=== PATIENT | female | born 1990 | race Caucasian/White ===

== ENCOUNTER 2020-03-17 03:56 | Emergency (ER) | payer OTHER, SELFPAY ==
[2020-03-17 04:07] VITALS: BP 137/92; PULSE 63; RESP 16; TEMP 36.8; O2SAT 100
--- NOTE | 2020-03-17 05:03 | ED.DENTAL ---
HPI - Dental/Oral General Chief complaint: Dental/Oral Stated complaint: dental pain Time Seen by Provider: 03/17/20 04:42 Source: patient Mode of arrival: ambulatory Limitations: no limitations History of Present Illness HPI Narrative: This patient is a 29 year old female who presents with c/o left upper dental pain. She states she has been having pain to her left upper molar for a while but over the past few days she has more severe pain. She was seen by her primary care physician yesterday, and She was prescribed amoxicillin. She has come to ER this morning because she feels swelling to left face and burning to left upper jaw. She has been taken naproxen and tylenol for her pain with out relief. MD Complaint: tooth pain Location: Tooth # Related Data Home Medications Medication Instructions Recorded Confirmed albuterol sulfate 2 puff INHALATION QID PRN 11/29/19 11/29/19 Allergies Allergy/AdvReac Type Severity Reaction Status Date / Time azithromycin AdvReac Unknown Nausea Verified 11/29/19 19:35 Review of Systems Review of Systems: All systems reviewed & are unremarkable except as noted in HPI and below Constitutional: Constitutional: Denies chills and Denies fever(s) ENT: Comments: left facial swelling PMFSH Past Medical History Medical History (Updated 03/17/20 @ 07:57 by Gillian Newby MD) Asthma Surgical History Surgical History (Updated 03/17/20 @ 07:56 by Gillian Newby MD) H/O tubal ligation Social History Social History (Updated 03/17/20 @ 07:57 by Gillian Newby MD) Smoking packs per day: 0.5 Smoking cigarettes per day: 10.0 Gender identity (if verbalized by the patient): Female Exam Const: General: alert Orientation/consciousness: patient oriented x3 HENMT: Head: normocephalic and atraumatic Face and sinus: face symmetric (no facial swelling, no facial erythema) Mouth: Yes lip normal, Yes tongue normal and Yes moist mucous membranes Teeth and gingiva: abnormal tooth and associated gingiva (broken tender tooth #17, no gum swelling) Throat: posterior oropharynx normal and uvula midline Chest: Chest palpation & inspection: normal inspection of the chest Resp: Effort & Inspection: normal respiratory effort Course Reevaluation(s) Reevaluation #1: Patient states her pain has improved with dose of toradol and norco. She will continue to take her antibiotics and follow up with a dentist. Date: 03/17/20 Time: 06:48 Vital Signs Vital signs: Vital Signs Temperature 98.2 F 03/17/20 04:07 Pulse Rate 63 03/17/20 04:07 Respiratory Rate 16 03/17/20 04:07 Blood Pressure 137/92 H 03/17/20 04:07 Pulse Oximetry 100 03/17/20 04:07 Temperature 97.9 F 03/17/20 07:08 Pulse Rate 72 03/17/20 07:08 Respiratory Rate 16 03/17/20 07:08 Blood Pressure 132/87 03/17/20 07:08 Pulse Oximetry 98 03/17/20 07:08 Discharge Plan Discharge Clinical Impression: Dental caries, Dental abscess Patient Disposition: Home, Self-Care Condition: Stable Instructions: Antibiotic Form, Dental Abscess (ED) Additional Instructions: Continue taking your amoxicillin. Follow up with a dentist. Try calling Dr. Myron Goodson with [facility] [phone] Prescriptions: New tramadol 50 mg tablet 50 mg PO Q6H PRN (Reason: pain) Qty: 10 RF: 0 No Action albuterol sulfate 90 mcg/actuation Hfa Aerosol Inhaler 2 puff INHALATION QID PRN (Reason: Shortness Of Breath) RF: 0 fluconazole [Diflucan] 150 mg tablet 150 mg PO ONCE Qty: 1 RF: 0 Follow-up/Referrals: Harriet,Kalyani Goff MD [Primary Care Provider] - Stand Alone Forms: Work/School Release IP Discharge Date/Time: 03/17/20 07:11
[2020-03-17] MEDS: ONDANSETRON HCL ODT 4 MG TABLET PO (05:19)
[2020-03-17] MEDS: KETOROLAC (*BKC) 60 MG/2 ML VIAL IM (05:21)
[2020-03-17 05:49] VITALS: TEMP 36.6
[2020-03-17 05:51] VITALS: TEMP 36.6
[2020-03-17 07:08] VITALS: BP 132/87; PULSE 72; RESP 16; TEMP 36.6; O2SAT 98
== END 2020-03-17 07:11 | disposition home or self-care (01) ==
PROVIDERS: Emergency Provider General Practice; PCP Family Medicine
DX: K02.9 Dental caries, unspecified (principal); K04.7 Periapical abscess without sinus; J45.909 Unspecified asthma, uncomplicated; F17.210 Nicotine dependence, cigarettes, uncomplicated
CPT/HCPCS: 96372; 99283; A9270; J1885

== ENCOUNTER 2021-05-14 19:16 | Emergency (ER) | payer OTHER, SELFPAY ==
[2021-05-14 19:28] VITALS: BP 116/73; PULSE 75; RESP 18; TEMP 36.3; O2SAT 98
--- NOTE | 2021-05-14 19:44 | ED.SKABFB ---
HPI - Skin/Abscess/Foreign Bdy General Chief complaint: Skin/Abscess/Foreign Body Stated complaint: Hives Time Seen by Provider: 05/14/21 19:39 Source: patient and RN notes reviewed Mode of arrival: ambulatory Limitations: no limitations History of Present Illness HPI narrative: Patient presents today complaining of hives. She applied a new self tanning lotion yesterday and noted hives to most of her body surface today. She has applied Benadryl and hydrocortisone without relief. She is itching profusely. MD complaint: rash Related Data Allergies Allergy/AdvReac Type Severity Reaction Status Date / Time azithromycin AdvReac Unknown Nausea Verified 05/14/21 19:29 Review of Systems Review of Systems: Narrative: CONSTITUTIONAL: Denies body aches, fever, chills, or sweats. EYES: Denies visual changes, redness, or discharge. ENT: Denies rhinorrhea, congestion, sore throat, or otalgia. CARDIOVASCULAR: Denies chest pain, palpitations, or edema. RESPIRATORY: Denies cough or dyspnea. GASTROINTESTINAL: Denies abdominal pain, nausea, vomiting, or diarrhea. GENITOURINARY: Denies dysuria or hematuria. SKIN: + Rash MUSCULOSKELETAL: Denies back pain, joint pain, or myalgia. NEUROLOGIC: Denies headache, numbness, tingling, or weakness. PSYCH: Denies depression or anxiety. PMFSH Past Medical History Medical History Asthma Surgical History Surgical History H/O tubal ligation Social History Social History Smoking packs per day: 0.5 Smoking cigarettes per day: 10.0 Gender identity (if verbalized by the patient): Female Comments At time of signature, I have reviewed and agree with nursing past medical, surgical, social and family history unless otherwise noted. Please see nursing chart for further information. There is no relevant family history pertinent to the presenting complaint Exam Narrative: Exam Narrative: GENERAL: Well-appearing, well-nourished, and in no acute distress. HEAD: Normocephalic, atraumatic. EYES: EOMI. No redness or drainage. Conjunctivae normal. ENT: Mucous membranes pink and moist. Throat normal. Uvula midline. NECK: Normal AROM.. CHEST: No respiratory distress. EXTREMITIES: Normal range of motion. No edema. SKIN: Warm, dry. Capillary refill normal. Normal skin turgor. Small urticarial lesions scattered over the trunk, all extremities, and face. NEURO: No focal deficits. Alert and oriented x3. Gait steady. PSYCH: Normal affect. No signs of depression or anxiety. Course Vital Signs Vital signs: Vital Signs Temperature 97.3 F L 05/14/21 19:28 Pulse Rate 75 05/14/21 19:28 Respiratory Rate 18 05/14/21 19:28 Blood Pressure 116/73 05/14/21 19:28 Pulse Oximetry 98 05/14/21 19:28 Temperature 97.3 F L 05/14/21 19:28 Pulse Rate 75 05/14/21 19:28 Respiratory Rate 18 05/14/21 19:28 Blood Pressure 116/73 05/14/21 19:28 Pulse Oximetry 98 05/14/21 19:28 Reviewed MDM - Skin/Abscess/Foreign Bdy Differential Diagnosis Differential diagnosis: Likely viral exanthem, urticaria, cellulitis, eczema, insect bites and contact dermatitis Critical Care Time Critical Care Time Critical Care Time: No Discharge Plan Discharge Clinical Impression: Urticaria Patient Disposition: Home, Self-Care Condition: Stable Instructions: Urticaria (ED) Additional Instructions: Please take the prednisone as directed for your hives. Continue to take Benadryl for your itching. Follow-up with your PCP next week if symptoms are not improving. Go to the ER immediately with any shortness of breath or difficulty swallowing. Patient Language: Albanian Prescriptions: New prednisone 50 mg tablet 50 mg PO DAILY 5 Days Qty: 5 RF: 0 Follow-up/Referrals: Harriet,Kalyani Goff MD [Primary Care
== END 2021-05-14 19:47 | disposition home or self-care (01) ==
PROVIDERS: Emergency Provider Nurse Practitioner; PCP Family Medicine
DX: L50.9 Urticaria, unspecified (principal); F17.210 Nicotine dependence, cigarettes, uncomplicated; J45.909 Unspecified asthma, uncomplicated
CPT/HCPCS: 99213; G0463

== ENCOUNTER 2021-07-11 10:30 | Emergency (ER) | payer OTHER, SELFPAY ==
--- NOTE | ~2021-07-11 | XR_ITS ---
EXAMINATION: XR chest 1V portable DATE: 07/11/2021 11:16 INDICATION: Shortness of breath and productive cough TECHNIQUE: frontal view of the chest was obtained. COMPARISON: Chest radiograph dated 06/16/2017 FINDINGS: The lungs remain clear with no focal airspace opacities, pulmonary edema, pleural effusion or pneumot horax. The cardiomediastinal silhouette is normal. Mild mid thoracic levocurvature. IMPRESSION: 1. No acute cardiopulmonary disease. Reviewed, dictated and finalized at location [facility].
[2021-07-11 10:36] VITALS: BP 119/85; PULSE 94; RESP 16; TEMP 36.6; O2SAT 98
--- NOTE | 2021-07-11 11:19 | ED.SOB ---
HPI - SOB/Dyspnea General Chief Complaint: Shortness of Breath/Dyspnea Stated Complaint: diff breathing Time Seen by Provider: 07/11/21 11:06 Source: patient Mode of arrival: ambulatory Limitations: no limitations History of Present Illness HPI Narrative: This is a 31-year-old female that presents to the emergency department for ongoing wheezing over the last couple of days. Reports she thinks she had an allergic reaction to tanning bed brush cleaner. Reports she had taken a couple of days in a row. Reports after she took and she felt really itchy and started to have tightness in her chest. This has been ongoing over the last couple of days since she tanned on Sunday. Reports wheezing and shortness of breath. Reports history of asthma. She has been doing nebulizer treatments with little relief. Denies fever. Related Data Home Medications Medication Instructions Recorded Confirmed albuterol sulfate 07/11/21 albuterol sulfate INHALATION 07/11/21 Allergies Allergy/AdvReac Type Severity Reaction Status Date / Time azithromycin AdvReac Unknown Nausea Verified 07/11/21 10:58 Review of Systems Review of Systems: CONSTITUTIONAL: Denies fever, chills CARDIOVASCULAR: Denies chest pain RESPIRATORY: Reports cough and dyspnea. All systems reviewed & are unremarkable except as noted in HPI and below PMFSH Past Medical History Medical History Asthma Surgical History Surgical History H/O tubal ligation Social History Social History Smoking packs per day: 0.5 Smoking cigarettes per day: 10.0 Gender identity (if verbalized by the patient): Female Exam Narrative: GENERAL: Well-appearing, well-nourished, and in no acute distress. HEAD: Normocephalic, atraumatic. EYES: EOMI. ENT: Nares clear, no rhinorrhea or epistaxis. Mucous membranes moist. Oropharynx without tonsillar hypertrophy exudate or other lesions. Bilateral TMs pearly álvarez non-bulging NECK: Supple. No adenopathy or masses. CHEST: No respiratory distress. Diffuse expiratory wheezes. No rales or rhonchi HEART: Regular rate and rhythm. No murmur heard. Normal peripheral pulses. EXTREMITIES: Normal range of motion. No edema. SKIN: Warm, dry, no rash. NEURO: No focal deficits. Alert and oriented x3. PSYCH: Normal mood and affect Course Reevaluation(s) Reevaluation #1: Lung sounds much improved following nebulizer treatments Date: 07/11/21 Time: 12:46 Vital Signs Vital signs: Vital Signs Temperature 97.8 F 07/11/21 10:36 Pulse Rate 94 07/11/21 10:36 Respiratory Rate 16 07/11/21 10:36 Blood Pressure 119/85 07/11/21 10:36 Pulse Oximetry 98 07/11/21 10:36 Temperature 97.8 F 07/11/21 10:36 Pulse Rate 74 07/11/21 12:42 Respiratory Rate 12 07/11/21 12:42 Blood Pressure 119/85 07/11/21 10:36 Pulse Oximetry 98 07/11/21 10:36 MDM - SOB/Dyspnea MDM Narrative Medical decision making narrative: Patient presents to the emergency department for wheezing noted over the last couple of days. Does has history of asthma. She is afebrile and nontoxic-appearing. Oxygen saturation is normal on room air. Chest x-ray without acute cardiopulmonary abnormality. Diffuse wheezing noted initially on exam. Relief after nebulizer treatments. Patient also given a dose of Solu-Medrol in the ED. Will be given a couple more days of steroids and instructed on continued use of her nebulizer as needed. She is to follow-up with her primary care doctor. She was given warnings to return the ER Imaging Data Radiologist's impression: ITS Impressions Chest X-Ray 07/11/21 11:43 IMPRESSION: 1. No acute cardiopulmonary disease. Critical Care Time Critical Care Time Critical Care Time: No Discharge Plan Discharge Clinical Impression: Asthma wit
[2021-07-11] MEDS: ALBUTEROL SULFATE NEB 2.5 MG/0.5 ML INH 5 MG INHALATION ×2 (11:24→12:41)
[2021-07-11] MEDS: IPRATROPIUM BR 0.02% INH SOLN 0.5 MG/2.5 ML VIAL INHALATION ×2 (11:24→12:41)
[2021-07-11 11:26] VITALS: PULSE 70; RESP 18
[2021-07-11] MEDS: methylPREDNISolone SOD SUCC 125 MG VIAL IV PUSH (11:27)
[2021-07-11 11:30] VITALS: PULSE 66; RESP 12
[2021-07-11 12:42] VITALS: PULSE 74; RESP 12
[2021-07-11 12:55] VITALS: BP 105/68; PULSE 81; RESP 10; O2SAT 100
== END 2021-07-11 12:56 | disposition home or self-care (01) ==
PROVIDERS: Emergency Provider Emergency Medicine; PCP Family Medicine
DX: J45.901 Unspecified asthma with (acute) exacerbation (principal); F17.210 Nicotine dependence, cigarettes, uncomplicated
CPT/HCPCS: 71045; 94640; 96374; 99284; J2930

== ENCOUNTER 2021-11-10 12:53 | Emergency (ER) | payer OTHER, SELFPAY ==
[2021-11-10 13:05] VITALS: BP 117/63; PULSE 78; RESP 16; TEMP 37.6; O2SAT 99
--- NOTE | 2021-11-10 14:12 | ED.ABDPAIN ---
HPI - Abdominal Pain General Chief Complaint: Abdominal Pain Stated Complaint: abd pain Time Seen by Provider: 11/10/21 14:13 Source: patient, RN notes reviewed and old records reviewed Mode of arrival: ambulatory Limitations: no limitations History of Present Illness HPI narrative: 31-year-old female who presents to [facility] with complaints of left lower abdominal pain for the past 2 weeks. Patient states that she has increased symptoms with eating and if she has intercourse, denies any history of PID or any problems with her ovaries has had tubal ligation. Patient states that she had normal bowel movement today initially she had some constipation and some diarrhea.Patient denies any fevers chills or sweats or any body aches has not had COVID or flu vaccinations. Patient denies any burning or pain with urination. MD elicited complaint: abdominal pain Related Data Home Medications Medication Instructions Recorded Confirmed albuterol sulfate 07/11/21 albuterol sulfate INHALATION 07/11/21 budesonide-formoterol [Symbicort] INHALATION 11/10/21 Allergies Allergy/AdvReac Type Severity Reaction Status Date / Time azithromycin AdvReac Unknown Nausea Verified 07/11/21 10:58 Review of Systems Review of Systems: CONSTITUTIONAL: Denies fever, chills, or sweats. EYES: Denies visual changes, redness, or discharge. ENT: Denies rhinorrhea, congestion, sore throat, or otalgia. CARDIOVASCULAR: Denies chest pain, palpitations, or edema. RESPIRATORY: Denies cough or dyspnea. GASTROINTESTINAL: Reported abdominal pain, states some episodes of nausea,no recent vomiting, or diarrhea, normal BM today GENITOURINARY: Denies dysuria or hematuria. SKIN: Denies rash or itching. MUSCULOSKELETAL: Denies back pain, joint pain, or myalgia. NEUROLOGIC: Denies headache, numbness, or weakness. PSYCHIATRIC: Denies anxiety or depression, is anxious. All systems reviewed & are unremarkable except as noted in HPI and below PMFSH Past Medical History Medical History Asthma Surgical History Surgical History H/O tubal ligation Social History Social History Smoking packs per day: 0.5 Smoking cigarettes per day: 10.0 Gender identity (if verbalized by the patient): Female Comments At time of signature, agree with nursing past medical, surgical, social and family history. There is no relevant family history pertinent to the presenting complaint Exam Narrative: GENERAL: Well-appearing, well-nourished, and in no acute distress. HEAD: Normocephalic, atraumatic. EYES: PERRLA and EOMI. ENT: Nares clear, no rhinorrhea or epistaxis. Mucous membranes moist.Tm's normal with good light reflex, throat pink with no lesions exudates or tonsil swelling NECK: Supple. no lymphadenopathy CHEST: Clear to auscultation. No respiratory distress.SAO2 99% on room air HEART: Regular rate and rhythm. No murmur heard. Normal peripheral pulses. ABDOMEN: Soft, no tenderness elicited on palpation, nondistended, normal active bowel sounds.No McBurney point tenderness no CVA tenderness. EXTREMITIES: Normal range of motion. No edema. SKIN: Warm, dry, no rash. NEURO: No focal deficits. Alert and oriented x3. Course Course Level of Care: Express Care Visit Vital Signs Vital signs: Vital Signs Temperature 37.6 C 11/10/21 13:05 Pulse Rate 78 11/10/21 13:05 Respiratory Rate 16 11/10/21 13:05 Blood Pressure 117/63 11/10/21 13:05 Pulse Oximetry 99 11/10/21 13:05 Temperature 37.6 C 11/10/21 13:05 Pulse Rate 78 11/10/21 13:05 Respiratory Rate 16 11/10/21 13:05 Blood Pressure 117/63 11/10/21 13:05 Pulse Oximetry 99 11/10/21 13:05 MDM - Abdominal Pain Differential Diagnosis Differential diagnosis: Likely abdominal pain, diverticulitis, gastroenteritis and other (left lower
--- NOTE | 2021-11-10 14:25 | PC.NURSE ---
in br to obtain ua spec.
== END 2021-11-10 15:15 | disposition home or self-care (01) ==
PROVIDERS: Emergency Provider Registered Nurse
DX: R10.32 Left lower quadrant pain (principal); F17.210 Nicotine dependence, cigarettes, uncomplicated; J45.909 Unspecified asthma, uncomplicated
CPT/HCPCS: 81003; 99212; G0463

== ENCOUNTER 2022-09-18 13:41 | Emergency (ER) | payer OTHER, SELFPAY ==
--- NOTE | ~2022-09-18 | CT_ITS ---
EXAMINATION: CT abdomen pelvis w con DATE: 09/18/2022 15:41 INDICATION: Rectal pain, fever, diarrhea. Recent diagnosis of hemorrhoid. TECHNIQUE: Computed tomography (CT) of the abdomen and pelvis was performed with 100 CC Omnipaque 350 intravenous contrast. Automated exposure control and iterative reconstruction technique were employe d. Exam dose: 265.95 mGy-cm total exam DLP. COMPARISON: None. FINDINGS: The lung bases are clear. Normal heart size. No pericardial or pleural effusion. The liver, gallbladder, bile ducts, spleen, pancreas, pancreatic duct, and adrenal glands and kidneys appear normal. Normal caliber of the abdominal aorta. No intraperitoneal or retroperitoneal or pelvic mass lesion or adenopathy or ascites. Normal appendix. No bowel obstruction, bowel wall thickening, pneumatosis or intraperitoneal free air is detected. Retroverted uterus. The urinary bladder appears unremarkable. There is chronic deformity of the lateral aspect of the left iliac bone. No suspicious osteolytic or osteoblastic lesions are noted. IMPRESSION: No significant abnormality Reviewed, dictated and finalized at [facility]. Reviewed, dictated and finalized at location [facility]. EOPTICIAN IMPRESSION: No significant abnormality
[2022-09-18 13:56] VITALS: BP 135/71; PULSE 92; RESP 18; TEMP 37.5; O2SAT 100
--- NOTE | 2022-09-18 15:10 | ED.GENADULT ---
HPI - General Adult General Chief complaint: Unspecified Stated complaint: rectal pain Time Seen by Provider: 09/18/22 14:41 History of Present Illness HPI narrative: 32-year-old female here for evaluation of left lower quadrant abdominal pain, rectal pain, and diarrhea for the past 2 weeks. Patient was seen by her primary care doctor upon symptom onset and was diagnosed with diverticulitis. She was not given antibiotics and her symptoms improved with symptoms controlled with dicyclomine. patient states that she ran out of dicyclomine several days ago and her pain returned. She saw her primary care doctor who diagnosed her with a hemorrhoid and anal fissure, was given cream with improvement of her symptoms, but states again she ran out of the cream. Patient presents today due to longevity of symptoms. Related Data Home Medications Medication Instructions Recorded Confirmed albuterol sulfate 2.5 mg/3 mL 07/11/21 (0.083 %) solution for nebulization albuterol sulfate 90 mcg/actuation inhalation 07/11/21 aerosol inhaler budesonide-formoterol HFA 80 inhalation 11/10/21 mcg-4.5 mcg/actuation aerosol inhaler (Symbicort) Allergies Allergy/AdvReac Type Severity Reaction Status Date / Time azithromycin AdvReac Unknown Nausea Verified 09/18/22 14:51 Review of Systems Review of Systems: Gen: Denies fevers or chills Eyes: Denies eye pain or visual change ENT: Denies congestion Respiratory: Denies shortness of breath or cough CV: Denies chest pain or palpitations GI: Reports rectal pain, abdominal pain, diarrhea. denies burning, urgency, frequency or hematuria Musculoskeletal: Denies back pain or muscle pain Neuro: Denies numbness, tingling, weakness or focal weakness Skin: Denies rash Except as documented, all other systems reviewed and negative [facility] Past Medical History Medical History Asthma Surgical History Surgical History H/O tubal ligation Social History Social History Smoking packs per day: 0.5 Smoking cigarettes per day: 10.0 Gender identity (if verbalized by the patient): Female Exam Narrative: APPEARANCE: Well appearing, no pain in distress, well-nourished. Head: Normocephalic and atraumatic. EYES: PERRLA/EOMI, conjunctivae clear NOSE: No nasal drainage EARS: External ear normal in appearance THROAT: Oropharynx is clear. Mucous membranes are moist. NECK: Supple. No adenopathy, no masses. RESPIRATORY: Airway patent, respirations nonlabored. Clear to auscultation bilaterally, no rales, rhonchi, wheezing. CARDIOVASCULAR: Regular rate and rhythm without murmurs, rubs, or gallops. ABDOMINAL: Normoactive bowel sounds. Soft, nontender, nondistended. No rebound tenderness or guarding. : External hemorrhoid noted. Pain with internal rectal exam. MUSCULOSKELETAL: Extremities are warm and well-perfused. Moves all extremities well. No edema. NEURO: Normal speech. No focal neurologic deficits. SKIN: Skin is warm and dry. No rashes. PSYCHIATRIC: Normal affect/mood.. Course Vital Signs Vital signs: Vital Signs Temperature 99.5 F 09/18/22 13:56 Pulse Rate 92 09/18/22 13:56 Respiratory Rate 18 09/18/22 13:56 Blood Pressure 135/71 09/18/22 13:56 Pulse Oximetry 100 09/18/22 13:56 Oxygen Delivery Room Air 09/18/22 13:56 Temperature 99.5 F 09/18/22 13:56 Pulse Rate 92 09/18/22 13:56 Respiratory Rate 18 09/18/22 13:56 Blood Pressure 135/71 09/18/22 13:56 Pulse Oximetry 100 09/18/22 13:56 Oxygen Delivery Room Air 09/18/22 13:56 Medical Decision Making [facility] Narrative Medical decision making narrative: 32-year-old female here for evaluation of rectal pain over the past several days, preceded by several days of abdominal pain and diarrhea. Patient is nontoxic-appear
[2022-09-18 15:35] LABS: Estimated CRCL calculation 61 ml/min; Estimated Glomerular Filt Rate > 60
[2022-09-18 15:41] LABS: Basophils Absolute Auto 0.1 K/mm3 (0.0-0.1); Basophils Percent Auto 0.7 % (0.2-1.2); Eosinophils Absolute Auto 0.2 K/mm3 (0-0.3); Hematocrit 38.1 % (37.0-47.0); Hemoglobin 12.7 g/dL (12.0-15.0); Immature Granulocyte Absolute 0.02 K/mm3 (0.00-0.031); Immature Granulocyte Percent A 0.2 % (0-0.5); Lymphocytes Absolute Auto 2.99 K/mm3 (0.9-3.2); Mean Corpuscular HGB Conc 33.3 g/dl (32-36); Mean Corpuscular Hemoglobin 29.7 pg (26-34); Mean Corpuscular Volume 89.2 fl (80-100); Mean Platelet Volume 9.5 fl (7.4-10.4); Monocytes Absolute Auto 0.7 K/mm3 (0.1-0.6); Monocytes Percent Auto 6.7 % (2.6-8.5); Neutrophils Absolute Auto 5.7 K/mm3 (1.3-6.7); Neutrophils Percent Auto 59.4 % (45.5-73.1); Platelet Count Result 363 k/mm3 (150-375); Red Blood Count 4.27 M/mm3 (4.2-5.4); Red Cell Distribution Width 13.2 % (11.5-14.5); White Blood Count 9.6 K/mm3 (4.5-10.0)
[2022-09-18 15:57] LABS: Alanine Aminotransferase 13 U/L (6-35); Albumin Level 4.4 g/dL (3.5-5.1); Alkaline Phosphatase 42 U/L (38-126); Anion Gap 9 mmol/L (8-16); Aspartate Amino Transferase 15 U/L (14-36); Bilirubin,Total 0.5 mg/dL (0.2-1.3); Blood Urea Nitrogen 11 mg/dL (7-17); Calcium 8.4 mg/dL (8.4-10.2); Carbon Dioxide 26 mmol/L (22-30); Chloride 105 mmol/L (98-107); Estimated CRCL calculation 68 ml/min; Estimated Glomerular Filt Rate > 60; Glucose 96 mg/dL (65-110); Potassium 3.7 mmol/L (3.4-5.0); Sodium 140 mmol/L (137-145)
== END 2022-09-18 16:38 | disposition home or self-care (01) ==
PROVIDERS: Physician Assistant; Emergency Provider Emergency Medicine; PCP Family Medicine
DX: K64.4 Residual hemorrhoidal skin tags (principal); J45.909 Unspecified asthma, uncomplicated
CPT/HCPCS: 74177; 80053; 81025; 85025; 99284; Q9967

== ENCOUNTER 2024-07-24 12:36 | Emergency (ER) | payer OTHER, SELFPAY ==
--- NOTE | ~2024-07-24 | XR_ITS ---
Left foot Technique: AP, oblique, and lateral views were obtained. Clinical History: Pain Findings: There is acute, oblique, minimally/fracture the fifth metatarsal shaft. No other fracture o r dislocation seen.. Joint spaces are preserved without erosive or degenerative change. Soft tissues are unremarkable. Impression: Acute, oblique fracture of the fifth metatarsal shaft, as detailed above. Reviewed, dictated and finalized at location M. Impression: Acute, oblique fracture of the fifth metatarsal shaft, as detailed above.
[2024-07-24 12:48] VITALS: BP 135/78; PULSE 85; RESP 20; TEMP 37.7; O2SAT 98
--- NOTE | 2024-07-24 12:49 | ED.FALL ---
HPI - Fall General Chief Complaint: Extremity Injury, Lower Stated Complaint: FALL Time Seen by Provider: 07/24/24 13:02 Source: patient, RN notes reviewed and old records reviewed Mode of arrival: ambulatory Limitations: no limitations History of Present Illness HPI Narrative: 34-year-old female presents to the [facility] with complaints of left foot pain, swelling, bruising Patient states on Sunday 2 days was walking, rolled her foot. Significant bruising swelling to the dorsal aspect Onset (ago): day(s) (2) Related Data Home Medications Medication Instructions Recorded Confirmed albuterol sulfate 2.5 mg/3 mL 07/11/21 (0.083 %) solution for nebulization albuterol sulfate 90 mcg/actuation inhalation 07/11/21 aerosol inhaler budesonide-formoterol HFA 80 inhalation 11/10/21 mcg-4.5 mcg/actuation aerosol inhaler (Symbicort) Allergies Allergy/AdvReac Type Severity Reaction Status Date / Time azithromycin AdvReac Unknown Nausea Verified 07/24/24 12:56 Review of Systems Review of Systems: All systems reviewed & are unremarkable except as noted in HPI and below Constitutional: Constitutional: Reports no additional constitutional complaints Eyes: Eyes: Reports no additional eye complaints ENT: Reports system reviewed and no additional complaints, except as documented Cardiovascular: Cardiovascular: Reports no additional cardiovascular complaints, Denies chest pain and Denies dyspnea Respiratory: Respiratory: Reports no additional respiratory complaints, Denies chest congestion, Denies cough and Denies dyspnea Gastrointestinal: Gastrointestinal: Reports no additional gastrointestinal complaints, Denies abdominal pain, Denies nausea and Denies vomiting Musculoskeletal: Musculoskeletal: Reports as per HPI Integumentary/Breasts: Skin/Breast: Reports system reviewed and no additional complaints, except as docu Neurologic: Reports system reviewed and no additional complaints, except as documented Psychiatric: Psychiatric: Reports no additional psychiatric complaints Allergic/Immunologic: Allergic/Immunologic: Reports no additional allergic/immunologic complaints PMFSH Past Medical History Medical History Asthma Surgical History Surgical History H/O tubal ligation Social History Social History Smoking packs per day: 0.5 Smoking cigarettes per day: 10.0 Gender identity (if verbalized by the patient): Female Comments At the time of my signature, I reviewed and agree with the nursing past medical, surgical, social, and family history. There is no relevant family history pertinent to the patient complaint. Exam Const: General: cooperative, healthy appearing, no acute distress, well developed, alert, uncomfortable and well nourished Nutritional Appearance: well nourished Orientation/consciousness: patient oriented x3 Limitations: no limitations HENMT: Head: normal to inspection Ears: hearing grossly normal bilaterally and external ears normal Face/Nose/Sinus: Normal external nose present, Normal nares present, Normal nasal mucous membranes and turbinates present, normal facial exam and face symmetric Face and sinus: normal facial exam and face symmetric Eyes: General: appearance normal, both eyes and all related structures Alignment and Position: alignment normal Periorbital: periorbital findings normal Neck: Neck: normal visual inspection, full ROM, no lymphadenopathy and no meningeal signs Chest: Chest palpation & inspection: normal inspection of the chest Resp: Effort & Inspection: normal respiratory effort and able to speak in complete sentences Cardio: Rate: regular rate Skin: General skin exam: normal color and no rashes or lesions noted Lesions: no lesions Rashes: no rashes Trauma: no lacerations or abrasions
== END 2024-07-24 14:20 | disposition home or self-care (01) ==
PROVIDERS: Emergency Provider Nurse Practitioner
DX: S92.355A Nondisplaced fracture of fifth metatarsal bone, left foot, initial encounter for closed fracture (principal); X50.9XXA Other and unspecified overexertion or strenuous movements or postures, initial encounter; Y93.01 Activity, walking, marching and hiking
CPT/HCPCS: 29515; 73630; 99214; G0463

== ENCOUNTER 2024-08-17 09:40 | Emergency (ER) | payer OTHER, SELFPAY ==
[2024-08-17 09:53] VITALS: BP 118/50; PULSE 91; RESP 20; TEMP 37.2; O2SAT 96
--- NOTE | 2024-08-17 10:04 | ED.ASTHMA ---
HPI - Asthma General Chief Complaint: Asthma Stated Complaint: Asthma Time Seen by Provider: 08/17/24 10:11 Source: patient and RN notes reviewed Mode of arrival: ambulatory Limitations: no limitations History of Present Illness HPI Narrative: 34-year-old female with history of asthma presents with concern for shortness of breath. She reports she went to a tanning bed and feels that she was triggered by the cleaning solution of the tanning bed. Reports she had trouble sleeping overnight, she has been using a nebulizer every 1 and half to 2 hours. She last used 1 at 9:30 a.m. this morning. Reports 1 week history of nasal congestion, drainage, cough. MD complaint: asthma attack Related Data Home Medications Medication Instructions Recorded Confirmed albuterol sulfate 2.5 mg/3 mL 2.6 mg inhalation Q4-5H 07/11/21 08/17/24 (0.083 %) solution for nebulization albuterol sulfate 90 mcg/actuation 2 puff inhalation Q4-5H 07/11/21 08/17/24 aerosol inhaler budesonide-formoterol HFA 80 1 puff inhalation DAILY 11/10/21 08/17/24 mcg-4.5 mcg/actuation aerosol inhaler (Symbicort) Allergies Allergy/AdvReac Type Severity Reaction Status Date / Time azithromycin AdvReac Unknown Nausea Verified 08/17/24 09:54 Review of Systems Review of Systems: CONSTITUTIONAL: Denies malaise, chills, sweats, or fever. EYES: Denies visual changes, redness, or discharge. ENT: Reports rhinorrhea, congestion CARDIOVASCULAR: Denies chest pain, palpitations, or edema. RESPIRATORY: Reports cough, wheezing, dyspnea. GASTROINTESTINAL: Denies abdominal pain, nausea, vomiting, diarrhea SKIN: Denies rash or itching. MUSCULOSKELETAL: Denies myalgia. NEUROLOGIC: Denies headache. All systems reviewed & are unremarkable except as noted in HPI and below PMFSH Past Medical History Medical History Asthma Surgical History Surgical History H/O tubal ligation Social History Social History Smoking packs per day: 0.5 Smoking cigarettes per day: 10.0 Smoking status: Current every day smoker Gender identity (if verbalized by the patient): Female Comments At time of signature, agree with nursing past medical, surgical, social and family history. There is no relevant family history pertinent to the presenting complaint Exam Narrative: GENERAL: Well-appearing, well-nourished, and in no acute distress. HEAD: Normocephalic EYES: PERRLA, conjunctivae clear ENT: Nares clear. Mucous membranes moist. TM pearly álvarez with dull light reflex bilaterally; no tragal tenderness. Oropharynx not erythematous without lesions. Tonsils not enlarged and without exudate, no drooling, no hoarseness, no trismus, uvula midline. NECK: Supple. No lymphadenopathy CHEST: Inspiratory and expiratory wheeze bilaterally, aeration fair, breath sounds equal. No rhonchi, rales, or stridor. No respiratory distress, speaks in full sentences. HEART: Regular rate and rhythm. No murmur heard. SKIN: Warm, dry, no rash. NEURO: Alert and oriented x3. PSYCH: Normal mood and affect Course Course Emergency Course: Patient is aware of diagnosis, understands and agrees to treatment plan. Anticipatory guidance given. Patient agrees to follow-up as directed and is aware of reasons to seek care at the emergency department. Portions of this record may have been created with voice recognition software Level of Care: Express Care Visit Reevaluation(s) Reevaluation #1: Aeration improved, wheezing approved, still has mild scattered wheeze. Patient reports improvement in symptoms. Patient has had many albuterol nebulization in the last 12 hours, she is already very jittery. Given improvement with this DuoNeb and steroid injection we will not repeat the DuoNeb at this time. Patient was given strict instructions for going to the emergency room for symptoms return or worsen. Vital Signs Vital signs: Vital Signs Temperature 98.9 F 08/17/24 09:53 Pulse Rate 91 08/17/24 09:53 Respiratory Rate 20 08/17/24 09:53 Blood Pressure 118/50 L 08/17/24 09:53 Pulse Oximetry 96 08/17/24 09:53 Oxygen Delivery Room Air 08/17/24 09:53 Temperature 98.9 F 08/17/24 09:53 Pulse Rate 91 08/17/24 09:53 Respiratory Rate 20 08/17/24 09:53 Blood Pressure 118/50 L 08/17/24 09:53 Pulse Oximetry 96 08/17/24 09:53 Oxygen Delivery Room Air 08/17/24 09:53 Reviewed. MDM - Asthma MDM Narrative Medical decision making narrative: I evaluated this patient in the [facility]. History is obtained from patient who is an independent historian and physical exam was performed.? Available medical records were reviewed. ? Exam findings show no acute concerns or changes; patient is non-toxic appearing and is in no distress. ? Differential diagnosis and treatment plan were discussed with the patient. Patient agrees with discussion and after shared medical decision making agrees with plan of care. All questions were answered to the patient's satisfaction. Patient is appropriate for outpatient treatment and follow-up. Lab Data Attestation: I reviewed the patient's lab results. Critical Care Time Critical Care Time Critical Care Time: No Discharge Plan Discharge Clinical Impression: Asthma with acute exacerbation Patient Disposition: Home, Self-Care Condition: Stable Instructions: Asthma (ED) Additional Instructions: Take medicines as directed. Visit your primary care doctor if: You have wheezing, shortness of breath, or a cough even if taking medicine to prevent attacks. You have thickening of sputum. Your sputum changes from clear or white to yellow, green, álvarez, or bloody. You have any problems that may be related to the medicines you are taking (such as a rash, itching, swelling, or trouble breathing). You are using a reliever medicine more than 2 to 3 times per week. Visit the ER if: You are short of breath even at rest or when doing very little physical activity. You develop difficulty eating, drinking, or talking due to asthma symptoms. You have chest pain or you feel that your heart is beating fast. You are lightheaded, dizzy, faint or have bluish lips or fingernails. You have a fever or persistent symptoms for more than 2 to 3 days or symptoms suddenly get worse. You seem to be getting worse and are unresponsive to treatment during an asthma attack. Prescriptions: New prednisone 50 mg tablet 50 mg PO DAILY 5 Days Qty: 4 0RF Rx Instructions: Start 08/18/24 No Action budesonide-formoterol [Symbicort] 80-4.5 mcg/actuation HFA aerosol inhaler 1 puff INHALATION DAILY hydrocodone-acetaminophen 5-325 mg tablet 1 tablet PO Q6H PRN (Reason: pain) Qty: 10 0RF albuterol sulfate 2.5 mg /3 mL (0.083 %) solution for nebulization 2.6 mg inhalation Q4-5H albuterol sulfate 90 mcg/actuation HFA aerosol inhaler 2 puff INHALATION Q4-5H Follow-up/Referrals: Harriet,Kalyani Goff MD [Primary Care Provider] - Time of Disposition: 10:46
[2024-08-17] MEDS: methylPREDNISolone SOD SUCC 125 MG VIAL IM (10:10)
[2024-08-17] MEDS: IPRATROPIUM 0.5 MG/ALBUTEROL SULFATE 2.5 MG AMPUL.NEB 3 ML INHALATION (10:11)
== END 2024-08-17 11:00 | disposition home or self-care (01) ==
PROVIDERS: Emergency Provider Nurse Practitioner; PCP Family Medicine
DX: J45.901 Unspecified asthma with (acute) exacerbation (principal); F17.210 Nicotine dependence, cigarettes, uncomplicated
CPT/HCPCS: 94640; 96372; 99213; G0463; J2919

== ENCOUNTER 2024-12-02 13:17 | Emergency (ER) | payer OTHER, SELFPAY ==
--- NOTE | 2024-12-02 13:18 | ED_ITS ---
HPI - Female Genitourinary General Chief complaint: Urogenital-Female Stated complaint: UTI Time Seen by Provider: 12/02/24 13:18 Source: patient Mode of arrival: ambulatory Limitations: no limitations History of Present Illness HPI Narrative: Magda is a 34-year-old female patient presenting to clinic today with complaints of possible UTI. She reports symptoms started last week with some pain in her left flank and radiated to left lower abdomen. Recently developed urinary frequency and urgency with some mild bladder discomfort. She denies any fevers, chills, or other body aches. Denies any blood in her urine. She denies any vaginal discharge or odor. No concern for sexually transmitted infections. No history of kidney stones in the past. Does have history of diverticulitis. Related Data Home Medications ?Medication ?Instructions ?Recorded ?Confirmed ?Last Taken ?Type albuterol sulfate 2.5 mg/3 mL 2.6 mg inhalation Q4-5H 07/11/21 08/17/24 Unknown History (0.083 %) solution for nebulization albuterol sulfate 90 mcg/actuation 2 puff inhalation Q4-5H 07/11/21 08/17/24 Unknown History aerosol inhaler budesonide-formoterol HFA 80 1 puff inhalation DAILY 11/10/21 08/17/24 Unknown History mcg-4.5 mcg/actuation aerosol inhaler (Symbicort) Allergies Allergy/AdvReac Type Severity Reaction Status Date / Time azithromycin AdvReac Unknown Nausea Verified 12/02/24 13:25 Review of Systems Review of Systems: Pertinent positives per HPI. Patient denies any fever, chills, rash, headache, visual changes, dizziness, cough, runny nose, sore throat, shortness of breath, chest pain, palpitations, nausea, vomiting, diarrhea, constipation. PMFSH Past Medical History Medical History Asthma Surgical History Surgical History H/O tubal ligation Social History Social History Smoking packs per day: 0.5 Smoking cigarettes per day: 10.0 Smoking status: Current every day smoker Gender identity (if verbalized by the patient): Female Comments At the time of my signature, I reviewed and agree with the nursing past medical, surgical, social, and family history. There is no relevant family history pertinent to the patient complaint. Exam Narrative: General: Well-developed, well nourished, in no apparent distress. Head: Normocephalic, atraumatic. Cardio: Regular rate and rhythm, s1 and s2 normal, no murmur appreciated. Resp: Clear to auscultation bilaterally, no rhonchi, rales, wheezing or rubs. Abdomen: Soft, pliable, bowel sounds present in all quadrants, mild tender to palpation over the suprapubic bladder and the left upper or lower quadrant, no organomegly, no CVAT tenderness. Course Course Emergency Course: Portions of this record may have been created with voice recognition software. Level of Care: Express Care Visit Vital Signs Vital signs: Vital Signs Temperature 37.5 C 12/02/24 13:25 Pulse Rate 61 12/02/24 13:25 Respiratory Rate 16 12/02/24 13:25 Blood Pressure 106/50 L 12/02/24 13:25 Pulse Oximetry 100 12/02/24 13:25 Oxygen Delivery Room Air 12/02/24 13:25 Temperature 37.5 C 12/02/24 13:25 Pulse Rate 61 12/02/24 13:25 Respiratory Rate 16 12/02/24 13:25 Blood Pressure 106/50 L 12/02/24 13:25 Pulse Oximetry 100 12/02/24 13:25 Oxygen Delivery Room Air 12/02/24 13:25 Vital signs reviewed MDM - Female Genitourinary MDM Narrative Medical decision making narrative: At the time of visit patient is resting comfortably on the exam table. Patient appears to be nontoxic. Plan: Patient is afebrile and does not appear to be in any distress. She is complaining of some urinary urgency and frequency with some bladder discomfort today. Urinalysis was performed and was negative for any sign of infection but did show trace of blood. She has no history kidney stones in the past. History of diverticulitis. Sent in prescription for Pyridium and will send urine for culture. Recommend patient go the emergency room if she develops left flank pain again or worsening of left abdomen pain. Supportive measures were discussed with the patient and they voiced understanding discharge instructions and agrees to treatment plan. Return precautions reviewed Differential Diagnosis Differential diagnosis: Likely urinary tract infection, bacterial vaginosis, trichomoniasis, cervicitis, ovarian cyst, vaginitis, cyst of Bartholin's gland, cystitis, dysmenorrhea and other (Diverticulitis, ureterolithiasis, pyelonephritis) Lab Data Labs: Lab Results 12/02/24 Range/Units 13:26 POC Urine Color Yellow POC Urine Clarity Cloudy POC Urine pH 8.0 POC Ur Specif [place] 1.025 POC Urine Protein Negative (Negative) POC Ur Glucose (UA) Negative (Negative) POC Urine Ketones Negative (Negative) POC Urine Blood Trace (Negative) POC Urine Nitrite Negative (Negative) POC Urine Bilirubin Negative (Negative) POC Urine Urobilinogen 0.2 POC U Leukocyte Esteras Negative (Negative) Discharge Plan Discharge Clinical Impression: Urinary urgency, Bladder pain Patient Disposition: Home, Self-Care Condition: Stable Instructions: Antibiotic Form, Urinary Urgency and Frequency (DC) Additional Instructions: Urinalysis shows trace of blood without sign of infection. We will send urine for culture. Take Pyridium as prescribed Increase fluids and stay well hydrated Wipe front to back. May use wet wipes. Avoid tub baths If sexually active- pee before and after intercourse. Wear cotton panties Avoid tight clothing up against the genitals Follow up with your PCP in 1 week if symptoms persist. If flank pain/left sided abdominal pain worsens recommend going to the emergency room to rule out kidney stone versus diverticulitis Patient Language: Russian Prescriptions: New phenazopyridine [Pyridium] 200 mg tablet 200 mg PO TID PRN (Reason: pain) Qty: 6 0RF No Action budesonide-formoterol [Symbicort] 80-4.5 mcg/actuation HFA aerosol inhaler 1 puff INHALATION DAILY albuterol sulfate 2.5 mg /3 mL (0.083 %) solution for nebulization 2.5 mg inhalation Q4H PRN (Reason: shortness of breath or wheezing) Qty: 75 0RF prednisone 50 mg tablet 50 mg PO DAILY 4 Days Qty: 4 0RF hydrocodone-acetaminophen 5-325 mg tablet 1 tablet PO Q6H PRN (Reason: pain) Qty: 10 0RF albuterol sulfate 2.5 mg /3 mL (0.083 %) solution for nebulization 2.6 mg inhalation Q4-5H albuterol sulfate 90 mcg/actuation HFA aerosol inhaler 2 puff INHALATION Q4-5H Follow-up/Referrals: Arnav,Laci Lennon APRN [Primary Care Provider] - Time of Disposition: 13:37 Quality NIHSS Nursing Documentation ED NIHSS nursing documentation: reviewed/agree
[2024-12-02 13:25] VITALS: BP 106/50; PULSE 61; RESP 16; TEMP 37.5; O2SAT 100
[2024-12-02 13:34] LABS: EDUAAPPEAR Cloudy; EDUABILI Negative (Negative); EDUABLOOD Trace (Negative); EDUACOLOR1 Yellow; EDUAGLUCOSE Negative (Negative); EDUAKETONE Negative (Negative); EDUALEUKO Negative (Negative); EDUANITRATE Negative (Negative); EDUAPROTEIN Negative (Negative); EDUASPGRAVITY 1.025; EDUAUROBILI 0.2
== END 2024-12-02 13:41 | disposition home or self-care (01) ==
PROVIDERS: Emergency Provider Nurse Practitioner Family; PCP Nurse Practitioner Family
DX: R39.15 Urgency of urination (principal); N32.9 Bladder disorder, unspecified; F17.210 Nicotine dependence, cigarettes, uncomplicated; J45.909 Unspecified asthma, uncomplicated
CPT/HCPCS: 81003; 87086; 99213; G0463

== ENCOUNTER 2025-07-07 13:33 | Emergency (ER) | payer OTHER, SELFPAY ==
--- NOTE | ~2025-07-07 | XR_ITS ---
EXAMINATION: XR finger 5th LT min 2V DATE: 07/07/2025 14:20 INDICATION: Post traumatic pain at the left fifth digit TECHNIQUE: Dorsal palmar, lateral and 2 oblique views of the left fifth digit were obtained COMPARISON: None FINDINGS: <1 mm distraction of a small volar plate avulsion fracture at the base of the fifth middle phalanx. Alignment is otherwise normal. No other fracture identified. 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 Negligible displacement of a small volar plate avulsion fracture at the base of the left fifth middle phalanx. Reviewed, dictated and finalized at location A.
[2025-07-07 13:43] VITALS: BP 110/65; PULSE 88; RESP 18; TEMP 36.8; O2SAT 100
--- NOTE | 2025-07-07 14:09 | ED.UPPEXIN ---
HPI - Extremity Injury (Upper) General Chief Complaint: Extremity Injury, Upper Stated Complaint: LT Hand Pinky finger Pain Source: patient Mode of arrival: ambulatory Limitations: no limitations History of Present Illness HPI narrative: 35-year-old female presented to for complaint of left little finger pain following an injury 3 days ago. Patient states while playing basketball she was struck in the little finger by a ball. Endorses bruising and swelling. Denies Deformity, numbness or tingling. Related Data Home Medications ?Medication ?Instructions ?Recorded ?Confirmed ?Last Taken ?Type albuterol sulfate 90 mcg/actuation 2 puff inhalation Q4-5H 07/11/21 08/17/24 Unknown History aerosol inhaler budesonide-formoterol HFA 80 1 puff inhalation DAILY 11/10/21 08/17/24 Unknown History mcg-4.5 mcg/actuation aerosol inhaler (Symbicort) Allergies Allergy/AdvReac Type Severity Reaction Status Date / Time azithromycin AdvReac Unknown Nausea Verified 07/07/25 13:47 Review of Systems Review of Systems: CONSTITUTIONAL: Denies body aches, fever, chills EYES: Denies visual changes ENT: Denies rhinorrhea, congestion CARDIOVASCULAR: Denies chest pain, palpitations, or edema. RESPIRATORY: Denies cough or dyspnea. SKIN: Denies rash, itching, or wounds. MUSCULOSKELETAL: reports Left 5th digit pain NEUROLOGIC: Denies headache, numbness, tingling, or weakness. All systems reviewed & are unremarkable except as noted in HPI and below PMFSH Past Medical History Medical History Asthma Surgical History Surgical History H/O tubal ligation Social History Social History Smoking packs per day: 0.5 Smoking cigarettes per day: 10.0 Smoking status: Current every day smoker Gender identity (if verbalized by the patient): Female Comments At time of signature, I have reviewed and agree with nursing past medical, surgical, social and family history unless otherwise noted. Please see nursing chart for further information. There is no relevant family history pertinent to the presenting complaint Exam Narrative: GENERAL: Well-appearing, well-nourished, and in no acute distress. CHEST: Speaks in full sentences. No respiratory distress. HEART: Regular rate and rhythm. Normal and equal peripheral pulses. EXTREMITIES: left 5th digit with mild bruising and swelling to the MCP and PIP. Slightly decreased range of motion due to pain with movement. No open wounds, or obvious deformity; alignment normal, pulse palpable and equal bilaterally, skin warm, dry, pink. Capillary refill less than 3 seconds. SKIN: Warm, dry NEURO: Alert and oriented x3. PSYCH: Normal mood and affect Course Course Emergency Course: Patient is aware of diagnosis, understands and agrees to treatment plan. Anticipatory guidance given. Patient agrees to follow-up as directed and is aware of reasons to seek care at the emergency department. Portions of this record may have been created with voice recognition software Level of Care: Express Care Visit Vital Signs Vital signs: Vital Signs Temperature 98.3 F 07/07/25 13:43 Pulse Rate 88 07/07/25 13:43 Respiratory Rate 18 07/07/25 13:43 Blood Pressure 110/65 07/07/25 13:43 Pulse Oximetry 100 07/07/25 13:43 Oxygen Delivery Room Air 07/07/25 13:43 Temperature 98.3 F 07/07/25 13:43 Pulse Rate 88 07/07/25 13:43 Respiratory Rate 18 07/07/25 13:43 Blood Pressure 110/65 07/07/25 13:43 Pulse Oximetry 100 07/07/25 13:43 Oxygen Delivery Room Air 07/07/25 13:43 Reviewed MDM - Extremity Injury (Upper) MDM Narrative Medical decision making narrative: Discussed physical exam findings and xray . Metal finger splint applied. Advised supportive measures and signs/symptoms to go to the ER. Pt is appropriate for outpt treatment and f/u. Differential Diagnosis Differential diagnosis: Likely finger sprain, dislocation of finger and other Imaging Data Radiologist's impression: Patient: Magda Lawler : 1990 MR#: [id number] Age: 35 Acct:[id number] Loc: [facility] ADM Date: 07/07/25Attending Dr: Ordering Physician: Wanda Caldwell APRN Date of Service: 07/07/25 Procedure(s): XR finger 5th LT min 2V Accession Number(s): [id number] cc: Wanda Caldwell APRN; Bolivar, Stacey Matute APRN~ EXAMINATION: XR finger 5th LT min 2V DATE: 07/07/2025 14:20 INDICATION: Post traumatic pain at the left fifth digit TECHNIQUE: Dorsal palmar, lateral and 2 oblique views of the left fifth digit were obtained COMPARISON: None FINDINGS: <1 mm distraction of a small volar plate avulsion fracture at the base of the fifth middle phalanx. Alignment is otherwise normal. No other fracture identified. 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 Negligible displacement of a small volar plate avulsion fracture at the base of the left fifth middle phalanx. Discharge Plan Discharge Clinical Impression: Finger fracture, left Patient Disposition: Home Condition: Stable Instructions: Antibiotic Form, Finger Fracture (ED) Additional Instructions: Rest, ice and elevate the hand Motrin 600mg every 8 hours, as needed, for pain (take with food). Tylenol 1000mg every 8 hours. Keep splint clean, dry and in place. You can take it off every few hours to practice gentle range of motion Go to the ER immediately for increased pain, tingling/numbness, swelling, redness, etc Follow up with Orthopedic Surgery in 1-2 days for further evaluation - please call today for an appointment. Patient Language: [place] Islander Prescriptions: No Action budesonide-formoterol [Symbicort] 80-4.5 mcg/actuation HFA aerosol inhaler 1 puff INHALATION DAILY albuterol sulfate 90 mcg/actuation HFA aerosol inhaler 2 puff INHALATION Q4-5H Follow-up/Referrals: Bolivar,Stacey Matute APRN [Primary Care Provider, Unknown] Time of Disposition: 14:37
== END 2025-07-07 14:45 | disposition home or self-care (01) ==
PROVIDERS: Emergency Provider Nurse Practitioner Family
DX: S62.627A Displaced fracture of middle phalanx of left little finger, initial encounter for closed fracture (principal); W21.05XA Struck by basketball, initial encounter; J45.909 Unspecified asthma, uncomplicated; F17.210 Nicotine dependence, cigarettes, uncomplicated
CPT/HCPCS: 29130; 73140; 99214; G0463